=== PATIENT | male | born 1950 | race Asian ===

== ENCOUNTER 2022-11-23 21:06 | Emergency (ER) | payer OTHER ==
[~2022-11-23] VITALS: Ht 167.6 cm; Wt 52.2 kg
[2022-11-23 21:26] VITALS: BP_SYST 162
--- NOTE | 2022-11-23 22:00 | NUR ---
ASSESSMENT DONE. NO ACUTE DISTRESS. PT DENIES ANY CHEST PAIN. PT IN WAITING ROOM.
--- NOTE | 2022-11-23 22:40 | NUR ---
made call out to lobby and ER no answer, LWBS by physician
--- NOTE | 2022-11-23 23:37 | NUR ---
made call out to ER and lobby LWBS by physician
--- NOTE | 2022-11-24 00:01 | NUR ---
CALLED PT MULTIPLE TIMES. NO ANSWER.
--- NOTE | 2022-11-24 00:28 | NUR ---
Patient left without being seen.
== END 2022-11-24 00:28 | disposition left against medical advice (07) ==
LOC: SED 21:06
DX: I10 Essential (primary) hypertension (principal); Z53.21 Procedure and treatment not carried out due to patient leaving prior to being seen by health care provider
CPT/HCPCS: 99281

== ENCOUNTER 2022-11-24 02:44 | Emergency (ER) | payer OTHER ==
[~2022-11-24] VITALS: Ht 165.1 cm; Wt 58.5 kg
[2022-11-24 03:00] VITALS: BP_SYST 136
--- NOTE | 2022-11-24 03:19 | NUR ---
TRIAGED PT. ASSESSMENT DONE. NOTED : BP 137/70. PT STATES THAT HIS PERSONAL BP MACHINE IS GIVING HIGH BP NUMBERS. PT LEFT WITHOUT BEING SOON
--- NOTE | 2022-11-24 03:30 | NUR ---
Made call out to ER and lobby, no answer LWBS by physician Per triage nurse, patient left immediately after triage when he saw that his BP was wnl.
--- NOTE | 2022-11-24 03:49 | NUR ---
Patient left without being seen.
== END 2022-11-24 03:49 | disposition left against medical advice (07) ==
LOC: SED 02:44
DX: I10 Essential (primary) hypertension (principal); Z53.21 Procedure and treatment not carried out due to patient leaving prior to being seen by health care provider
CPT/HCPCS: 99281